=== PATIENT | female | born 1960 | race Caucasian/White ===

== ENCOUNTER 2018-07-21 07:51 | Outpatient (REF) | payer OTHER, SELFPAY ==
[2018-07-21 12:53] LABS: Anion Gap 8.5 mmol/L (3-11); BUN 21 mg/dL (7-18); CO2 30.5 mmol/L (21.0-32.0); CREATININE 0.92 mg/dL (0.55-1.02); Calcium 9.5 mg/dL (8.5-10.1); Chloride 102 mmol/L (98-107); Cholesterol 235 mg/dL (50-200); Glucose 99 mg/dL (70-100); HDL Cholesterol 55 mg/dL (40-60); LDL CHOLESTEROL 164 mg/dL (<100); Potassium 4.4 mmol/L (3.5-5.1); Sodium 141 mmol/L (136-145); Triglyceride 54 mg/dL (30-150)
== END 2018-07-21 08:11 ==
LOC: NCHCN 07:51
PROVIDERS: PCP Nurse Practitioner Family; Visit Provider Nurse Practitioner Family
DX: Z00.00 Encounter for general adult medical examination without abnormal findings (principal); Z13.228 Encounter for screening for other metabolic disorders; Z13.220 Encounter for screening for lipoid disorders
CPT/HCPCS: 80048; 80061; 83721

== ENCOUNTER 2018-07-28 10:42 | Outpatient (REF) | payer OTHER, SELFPAY ==
--- NOTE | 2018-07-28 10:15 | PAPFT_PTH ---
PATIENT: Annalee Morales LOC: [facility]#:[id number] AGE/SX: 57/F ROOM: RE07/28/[address]: Tania Hoff : 1960 BED: DIS: 07/28/2018 SPEC #: [id number] RECD: 07/28/18 12:58 STATUS: BRITTANIE REBibi #: [id number] JOSE: 07/28/18 10:[address]: Tania Hoff DEPT: [facility], [facility] Cytology RECD BY: Claudia Renner Tissues: 1 - CX/ENDOCX FOR PAP SMEARS Procedures: PAP THIN PREP/[facility] Screening HPV DNA PROBE Comments: [id number]
== END 2018-07-28 11:02 ==
LOC: NCHCN 10:42
PROVIDERS: PCP Nurse Practitioner Family; Visit Provider Nurse Practitioner Family
DX: Z00.00 Encounter for general adult medical examination without abnormal findings (principal); Z12.4 Encounter for screening for malignant neoplasm of cervix; Z11.51 Encounter for screening for human papillomavirus (HPV)
CPT/HCPCS: 88142; 87624

== ENCOUNTER 2019-12-19 07:52 | Outpatient (REF) | payer OTHER, SELFPAY ==
[2019-12-19 19:13] LABS: Anion Gap 5.5 mmol/L (3-11); BUN 16 mg/dL (7-18); CO2 31.5 mmol/L (21.0-32.0); CREATININE 0.85 mg/dL (0.55-1.02); Calcium 9.4 mg/dL (8.5-10.1); Calculated LDL 185 mg/dL (<100); Chloride 104 mmol/L (98-107); Cholesterol 254 mg/dL (<200); Glucose 92 mg/dL (74-106); HDL Cholesterol 53 mg/dL (40-60); Potassium 4.6 mmol/L (3.5-5.1); Sodium 141 mmol/L (136-145); Triglyceride 80 mg/dL (<150)
== END 2019-12-19 08:12 ==
LOC: NCHCN 07:52
PROVIDERS: PCP Nurse Practitioner Family; Visit Provider Nurse Practitioner Family
DX: Z00.00 Encounter for general adult medical examination without abnormal findings (principal); E78.5 Hyperlipidemia, unspecified
CPT/HCPCS: 80048; 80061

== ENCOUNTER 2020-01-03 00:46 | Outpatient (CLI) | payer OTHER, SELFPAY ==
--- NOTE | 2020-01-03 | DI.MAMMO_ITS ---
EXAM: MG MAMMO SCREENING CLINICAL HISTORY: SCREENING, Z12.39 TECHNIQUE: Mammograms were interpreted according to the usual protocol including computer analysis w [employer] CAD system, tomosynthesis and C-view imaging. COMPARISON: FINDINGS: The breasts are heterogeneously dense. No dominant mass or clumped microcalcification is identified in either breast. The current examination is compared with prior studies including July 2017 and ther e has been no gross interval change in appearance in comparison the previous examinations. IMPRESSION: No specific evidence of malignancy at this time. Routine screening examinations are suggested at yea rly intervals due to the family history of breast carcinoma. BI-RADS Category 1 - Negative Breast Density - Category C - Heterogeneously dense
== END 2020-01-03 01:06 ==
PROVIDERS: PCP Nurse Practitioner Family; Visit Provider Nurse Practitioner Family
DX: Z12.31 Encounter for screening mammogram for malignant neoplasm of breast (principal); Z80.3 Family history of malignant neoplasm of breast
CPT/HCPCS: 77063; 77067

== ENCOUNTER 2021-01-03 03:46 | Outpatient (CLI) | payer OTHER, SELFPAY ==
--- NOTE | 2021-01-03 14:51 | DI.MAMMO_ITS ---
Exam(s) MAMMO SCREENING EXAM: MAMMO SCREENING CLINICAL HISTORY: SCREENING, Z12.39 TECHNIQUE: Mammograms were interpreted according to the usual protocol including computer analysis w [employer] CAD system, tomosynthesis and C-view imaging. COMPARISON: FINDINGS: The breasts are heterogeneously dense. No dominant mass or clumped microcalcification is identified in either breast. The current examination is compared with previous examinations including December 28 and there has been no gross interval change in appearance in comparison with the prior studies. IMPRESSION: No specific evidence of malignancy at this time. Routine screening examinations are suggested at yea rly intervals due to the family history of breast carcinoma. BI-RADS Category 1 - Negative Breast Density - Category C - Heterogeneously dense
== END 2021-01-03 04:06 ==
PROVIDERS: PCP Nurse Practitioner Family; Visit Provider Nurse Practitioner Family
DX: Z12.31 Encounter for screening mammogram for malignant neoplasm of breast (principal); R92.8 Other abnormal and inconclusive findings on diagnostic imaging of breast
CPT/HCPCS: 77063; 77067

== ENCOUNTER 2021-12-09 21:51 | Outpatient (REF) | payer OTHER, SELFPAY ==
[2021-12-09 19:30] LABS: Calculated LDL 182 mg/dL (<100); Cholesterol 270 mg/dL (<200); HDL Cholesterol 51 mg/dL (40-60); Triglyceride 185 mg/dL (<150)
== END 2021-12-09 21:52 | disposition home or self-care (01) ==
LOC: NCHCN 21:51
PROVIDERS: PCP Nurse Practitioner Family; Visit Provider Nurse Practitioner Family
DX: E78.5 Hyperlipidemia, unspecified (principal)
CPT/HCPCS: 80061

== ENCOUNTER 2022-03-03 17:17 | Outpatient (REF) | payer OTHER, SELFPAY ==
[2022-03-03 19:23] LABS: TSH (W/Ref FT4) 1.63 uIU/mL (0.36-3.74)
== END 2022-03-03 17:18 | disposition home or self-care (01) ==
LOC: NCHCN 17:17
PROVIDERS: PCP Nurse Practitioner Family; Visit Provider Nurse Practitioner Family
DX: L65.9 Nonscarring hair loss, unspecified (principal)
CPT/HCPCS: 84443

== ENCOUNTER → 2023-02-04 00:49 | Outpatient (CLI) | payer OTHER, SELFPAY ==
--- NOTE | 2023-02-04 | DI.MAMMO_ITS ---
Exam(s) MAMMO SCREENING EXAM: MAMMO SCREENING CLINICAL HISTORY: SCREENING FOR BREAST CANCER Z12.39. TECHNIQUE: Bilateral full field digital CC and MLO mammographic images were obtained with 3D tomosyn thesis and utilizing computer aided detection (CAD). COMPARISON: Prior mammograms were reviewed. FINDINGS: There has been no significant change in the appearance and distribution of the fibroglandular tissue. Asymmetric density posteriorly in left breast is unchanged from prior mammograms. There are no new spiculated masses nor malignant appearing microcalcification groups. There is no significant architectural distortion nor skin thickening-retraction. IMPRESSION: No radiographic evidence of malignancy. Stable benign-appearing findings. BI-RADS Category 2 - Benign Findings Breast Density - Category C - Heterogeneously dense Breast density Category C or D implies that the patient has dense breast tissue. Dense breast tissue can make it harder to find cancer on a mammogram. Dense breast tissue is also associated with an incr eased risk of breast cancer. This information about the result of the mammogram report was provided to the patient to raise their awareness. Use this report when you speak with the patient about their risks for breast cancer, which includes their family history. At that time, you may recommend additional screening tests (Ultrasoun d or MRI) as these tests may add significant information. A negative radiographic report should not delay biopsy if a dominant or clinically suspicious mass is present. Up to ten percent of cancers are not identified on mammography. A negative report may reinforce clinical impression. Adenosis and dense breasts may obscure an underlying neoplasm. False positive reports average 6 to 10%. Patient will receive a letter notifying them of these results.
== END ==
PROVIDERS: PCP Nurse Practitioner Family; Visit Provider Nurse Practitioner Family
DX: Z12.31 Encounter for screening mammogram for malignant neoplasm of breast (principal); R92.333 Mammographic heterogeneous density, bilateral breasts
CPT/HCPCS: 77063; 77067

== ENCOUNTER 2024-03-06 08:44 | Outpatient (REF) | payer OTHER, SELFPAY ==
[2024-03-06 15:13] LABS: Anion Gap 6.4 mmol/L (3-11); BUN 19 mg/dL (7-18); CO2 30.6 mmol/L (21.0-32.0); Calcium 9.5 mg/dL (8.5-10.1); Calculated LDL 187 mg/dL (<100); Chloride 106 mmol/L (98-107); Cholesterol 259 mg/dL (<200); Estimated GFR 62.52 (mL/min/1.73m2); Glucose 98 mg/dL (74-106); HDL Cholesterol 58 mg/dL (40-60); Potassium 4.7 mmol/L (3.5-5.1); Sodium 143 mmol/L (136-145); Triglyceride 70 mg/dL (<150)
== END 2024-03-06 08:45 | disposition home or self-care (01) ==
LOC: NCHCN 08:44
PROVIDERS: PCP Nurse Practitioner Family; Visit Provider Nurse Practitioner Family
DX: Z00.00 Encounter for general adult medical examination without abnormal findings (principal)
CPT/HCPCS: 80048; 80061

== ENCOUNTER 2024-04-14 00:38 | Outpatient (CLI) | payer MEDICARE, SELFPAY ==
--- NOTE | 2024-04-14 | DI.DEXA_ITS ---
Exam(s) XR DEXA BONE DENSITY W/WO DOUGLAS EXAM: XR DEXA BONE DENSITY W/WO DOUGLAS CLINICAL HISTORY: Asymptomatic menopausal state, Z78.0; screening for osteoporosis TECHNIQUE: COMPARISON: No exams were available for comparison FINDINGS: Lateral Spine Image: Unremarkable. No compression deformities identified. Left hip: Total T-Score: -2.1 Total Z-Score: -0.8 T- and Z-scores: Findings in the total hip are consistent with osteopenia. There is osteoporosis in the femoral neck with a T-score of -2.9. Lumbar Spine: Total T-Score: -2.3 Total Z-Score: -0.5 T- and Z-scores: Overall there is osteopenia in the lumbar spine. There is osteoporosis in the L3 an d L4 vertebral bodies with T-scores of -2.8 and -3.1 respectively. IMPRESSION: Areas of osteoporosis seen in the left femoral neck and the left L3 and L4 vertebral bodies.
--- OUTSIDE RECORDS SUMMARY | 2024-04-14 00:42 | XMS_ITS | Clinical Summary ---
Author Organization [facility] Address [address] [place] [address] Care Team Providers Care Prototype Special Build Name Role Phone Elvia Hairston MD Primary Care Provide r Unavailable Social History Tobacco Use Types Packs/Day Years Used Date Smoking Tobacco: Never Assessed Comments Unknown Sex and Gender Information Value Date Recorded Sex Assigned at Not on file Legal Sex Female 18:12 EST Gender Identity Not on file Sexual Orientation Not on file Plan of Treatment Health Maintenance Due Date Last Done Comments Hepatitis C Screen 1960 Fall Risk Screening 09/18/2023 COVID-19 Vaccine ( season) 2023 RSV Immunization ( o r 60+ Years) (1 - 1-dose 75+ series) 2033 Care Teams Prototype Special Build Relationship Specialty Start Date End Date Elvia Hairston MD PCP - General 02/05/15
--- OUTSIDE RECORDS SUMMARY | 2024-04-14 00:42 | XMS_ITS | Encounter Summary ---
Author Organization [facility] Address [address] [place] [address] Care Team Providers Care Clinic Specialist Name Role Phone Elvia Hairston MD Primary Care Provide r Unavailable Encounter Details Date Type Department Care Team (Late st Contact Info) Description 07/28/2018 Results Only [facility] [phone] Angela Hoff, JOY [address] [place] [address] Social History Tobacco Use Types Packs/Day Years Used Date Smoking Tobacco: Never Assessed Comments Unknown Sex and Gender Information Value Date Recorded Sex Assigned at Not on file Legal Sex Female 18:12 EST Gender Identity Not on file Sexual Orientation Not on file documented as of this encounter Plan of Treatment Not on file documented as of this encounter Procedures Procedure Name Priority Date/Time Associated Diagnosis Comments PAP TEST- RESULT ONLY Routine 07/28/2018 0:00 EDT documented in this encounter Results * PAP TEST- RESULT ONLY (07/28/2018 0:00 EDT) Pathology Report: CYTOPATHOLOGY REPORT Reports generated via electronic interface contain original data; however they are lacking the format of the original report. Caution should be taken when reading/interpreti ng unformatted reports. Name: ? ANNALEE MORALES ? Accession #: ? [id number] ? : ? 1960 (Age: 57) ??F ?Collect Date: ? 07/28/2018 ? Location: ? [facility] ? Receive Date: ? 07/29/2018 ? Provider: ANGELA HOFF INTERMEDIATE TEACHER Copy to: ? Final Report SPECIMEN ADEQUACY ? Satisfactory for Evaluation - transformation zone component present - scant squamous epithelial component GENERAL CATEGORIZATION ? Negative for Intraepithelial Lesion or Malignancy ?? Other: Additional clinical information: Z00.00 Z12.4 Z11.51 Specimen/Source: ??Pap Test, Cervix, ThinPrep Imaging System with manual evaluation Document reviewed and electronically signed by: ? Aki Blue, CT(ASCP) ? Report ??Date: 08/01/2018 10:02 HPV with Pap Test ? Date Ordered: ? 08/01/2018 ? Status: ?? Signed Out ?Date Complete: ? 08/02/2018 ? By: ??System Interface ? Date Reported: ? 08/02/2018 ? Interpretation RESULT: Negative for HPV. No E6 or E7 mRNA is detected from HPV types 16,18,31,33,35, 39,45,51,52,56,58, 59,66, and 68 by management assistant mediated amplification. Comments Document reviewed and electronically signed by: ? System Interface ? Report date: 08/02/2018 By the signature above, the attending physician certifies that he/she has personally conducted a gross and/or microscopic examination of the described specimens and rendered or confirmed the above diagnosis. End of Report [facility] 07/28/2018 07/29/2018 us Angela Hoff INTERMEDIATE TEACHER PATHOLOGY ORDERABLES Final Res ult [facility] [address] [place] [address] documented in this encounter Visit Diagnoses Not on filedocumented in this encounter Care Teams Clinic Specialist Relationship Specialty Start Date End Date Elvia Hairston MD PCP - General 02/05/15 documented as of this encounter
--- OUTSIDE RECORDS SUMMARY | 2024-04-14 00:42 | XMS_ITS | Encounter Summary ---
Author Organization [facility] Address [address] [place] [address] Care Team Providers Care Hub Lead Name Role Phone Unavailable Primary Care Provider Unavailabl e Encounter Details Date Type Department Care Team (Late st Contact Info) Description 01/19/2002 Results Only [facility] [place] conversion [address] [place] [address] Patria Cohen, APOLINAR Social History Tobacco Use Types Packs/Day Years [...] Procedure Name Priority Date/Time Associated Diagnosis Comments CYTOPATHOLOGY Routine 01/19/2002 0:00 EDT documented in this encounter Results * CYTOPATHOLOGY (01/19/2002 0:00 EDT) Pathology Report: CYTOPATHOLOGY REPORT Reports generated via electronic interface contain original data; however they are lacking the format of the original report. Caution should be taken when reading/interpreti ng unformatted reports. Name: ? ANNALEE MORALES ? Accession #: ? [id number] : ? 1960 (Age: 41) ??F ?Collect Date: ? 01/19/2002 Location: ? [facility] ? Receive Date: ? 01/23/2002 Provider: ?PATRIA COHEN HUSBANDRY PERSON Copy to: ? Specimen/Source: ?ThinPrep Pap Test, Cervix/Endocervix Last Menstrual Period: ? 01/14/02 ? SPECIMEN ADEQUACY ? Satisfactory for Evaluation - transformation zone component present GENERAL CATEGORIZATION ? Negative for Intraepithelial Lesion or Malignancy ? Document reviewed and electronically signed by: ? ORLANDO Palumbo(ASCP) ? Report Date: ??01/26/2002 07:50 End of Report [facility] 01/19/2002 01/23/2002 us Patria Cohen NP PATHOLOGY ORDERABLES Final Re sult [facility] [address] [place] [address] documented in this encounter Visit Diagnoses Not on filedocumented in this encounter
--- OUTSIDE RECORDS SUMMARY | 2024-04-14 00:42 | XMS_ITS | Encounter Summary ---
Author Organization [facility] Address [address] [place] [address] Care Team Providers Care Business Continuity Director Name Role Phone Unavailable Primary Care Provider Unavailabl e Encounter Details Date Type Department Care Team (Late st Contact Info) Description 01/25/2008 Before [facility] Converted Visit ([facility]) [facility] conversion [address] [place] [address] Patria Cohen, MACHINE STAKER Social History Tobacco Use Types Packs/Day Years [...] Priority Date/Time Associated Diagnosis Comments CYTOPATHOLOGY Routine 01/25/2008 0:00 EDT documented in this encounter Results * CYTOPATHOLOGY (01/25/2008 0:00 EDT) Pathology Report: CYTOPATHOLOGY REPORT ? Reports generated via electronic interface contain original data; ? however they are lacking the format of the original report. ? Caution should be taken when reading/interpreti ng unformatted reports. ? Name: ? RIGOBERTO, ANNALEE De Jesus ? Accession #: ? [id number] ? : ? 1960 (Age: 47) ??F ?Collect Date: ? 01/25/2008 ? Location: ? [facility] ? Receive Date: ? 01/26/2008 ? Provider: ?PATRIA M KATI MACHINE STAKER ? Copy to: ? Specimen/Source: ?Pap Test, Cervix/Endocervix, ThinPrep Imaging System ? with manual evaluation ? Last Menstrual Period: ? 10/24/08 ? SPECIMEN ADEQUACY ? Satisfactory for Evaluation ? - transformation zone component present ? GENERAL CATEGORIZATION ? Negative for Intraepithelial Lesion or Malignancy ? Document reviewed and electronically signed by: ? Carmella Aidee, CT(ASCP) ? Report Date: ??01/30/2008 12:44 ? End of Report ? [facility] 01/25/2008 01/26/2008 us Patria Cohen MACHINE STAKER PATHOLOGY ORDERABLES Final Re sult [facility] [address] [place] [address] documented in this encounter Visit Diagnoses Not on filedocumented in this encounter
--- OUTSIDE RECORDS SUMMARY | 2024-04-14 00:42 | XMS_ITS | Encounter Summary ---
Author Organization [facility] Address [address] [place] [address] Care Team Providers Care Tractor Trailer Mechanic Name Role Phone Unavailable Primary Care Provider Unavailabl e Encounter Details Date Type Department Care Team (Late st Contact Info) Description 11/24/2010 Results Only [facility] Laboratory Services - [facility] ([facility] [address] [place] [address] Patria Cohen, APOLINAR Social History Tobacco Use [...] Diagnosis Comments PAP TEST- RESULT ONLY Routine 11/24/2010 0:00 EDT documented in this encounter Results * PAP TEST- RESULT ONLY (11/24/2010 0:00 EDT) Pathology Report: CYTOPATHOLOGY REPORT ? Reports generated via electronic interface contain original data; ? however they are lacking the format of the original report. ? Caution should be taken when reading/interpreti ng unformatted reports. ? Name: ? RIGOBERTO, ANNALEE De Jesus ? Accession #: ? [id number] ? : ? 1960 (Age: 50) ??F ?Collect Date: ? 11/24/2010 ? Location: ? [facility] ? Receive Date: ? 11/25/2010 ? Provider: PATRIA Garcia KATI BODY AND FRAME TECHNICIAN ? Copy to: ? Final Report ? SPECIMEN ADEQUACY ? Satisfactory for Evaluation ? - transformation zone component present ? GENERAL CATEGORIZATION ? Negative for Intraepithelial Lesion or Malignancy ? Last Menstural Period: 10/13/2010 ? Specimen/Source: ??Pap Test, Cervix/Endocervix, ThinPrep Imaging System with ? manual evaluation ? Document reviewed and electronically signed by: ? Aki Blue, CT(ASCP) ? Report ??Date: 11/28/2010 13:44 ? HPV with Pap Test ? Date Ordered: ? 11/28/2010 ? Status: ?? Signed Out ?Date Complete: ? 12/04/2010 ? By: ??System Interface ? Date Reported: ? 12/04/2010 ? Interpretation ? RESULT: Negative for HPV types 16, 18, 31, 33, 35, 39, 45, 51, 52, ? 56, 58, 59, and 68. ? Comments ? Document reviewed and electronically signed by: ? System Interface ? Report date: 12/04/2010 ? By the signature above, the attending physician certifies that he/she has ? personally conducted a gross and/or microscopic examination of the described ? specimens and rendered or confirmed the above diagnosis. ? End of Report ? [facility] 11/24/2010 11/25/2010 us Patria Cohen BODY AND FRAME TECHNICIAN PATHOLOGY ORDERABLES Final Re sult [facility] [address] [place] [address] documented in this encounter Visit Diagnoses Not on filedocumented in this encounter
--- OUTSIDE RECORDS SUMMARY | 2024-04-14 00:42 | XMS_ITS | Encounter Summary ---
Author Organization [facility] Address [address] [place] [address] Care Team Providers Care Drum Maker Name Role Phone Unavailable Primary Care Provider Unavailabl e Encounter Details Date Type Department Care Team (Late st Contact Info) Description 01/28/2009 Orders Only [facility] Services - [facility] [place] [address] [place] [address] Patria Cohen, SURFACE ROOM SHOP OPTICIAN Social History Tobacco Use Types Packs/Day Years [...] Priority Date/Time Associated Diagnosis Comments CYTOPATHOLOGY Routine 01/28/2009 0:00 EST documented in this encounter Results * CYTOPATHOLOGY (01/28/2009 0:00 EST) Pathology Report: CYTOPATHOLOGY REPORT ? Reports generated via electronic interface contain original data; ? however they are lacking the format of the original report. ? Caution should be taken when reading/interpreti ng unformatted reports. ? Name: ? RIGOBERTO, ANNALEE De Jesus ? Accession #: ? [id number] ? : ? 1960 (Age: 48) ??F ?Collect Date: ? 01/28/2009 ? Location: ? [facility] ? Receive Date: ? 01/29/2009 ? Provider: ?PATRIA M KTAI SURFACE ROOM SHOP OPTICIAN ? Copy to: ? Specimen/Source: ?Pap Test, Cervix/Endocervix, ThinPrep Imaging System ? with manual evaluation ? Last Menstrual Period: ? 10/21/09 ? Other: ? HPVA - HPV testing requested if ASC-US on the current ThinPrep Pap test. ? SPECIMEN ADEQUACY ? Satisfactory for Evaluation ? - transformation zone component present ? GENERAL CATEGORIZATION ? Negative for Intraepithelial Lesion or Malignancy ? Document reviewed and electronically signed by: ? Danni Terrazas, CT(ASCP)(IAC) ? Report Date: ??02/04/2009 14:23 ? End of Report ? [facility] 01/28/2009 01/29/2009 us Patria Cohen SURFACE ROOM SHOP OPTICIAN PATHOLOGY ORDERABLES Final Re sult [facility] [address] [place] [address] documented in this encounter Visit Diagnoses Not on filedocumented in this encounter
--- OUTSIDE RECORDS SUMMARY | 2024-04-14 00:42 | XMS_ITS | Encounter Summary ---
Author Organization [facility] Address [address] [place] [address] Care Team Providers Care Plant Control Operator Name Role Phone Unavailable Primary Care Provider Unavailabl e Encounter Details Date Type Department Care Team (Late st Contact Info) Description 01/05/2000 Results Only [facility] - [facility] conversion [address] [place] [address] Patria Cohen, APOLINAR Social History Tobacco Use [...] Priority Date/Time Associated Diagnosis Comments CYTOPATHOLOGY Routine 01/05/2000 0:00 EDT documented in this encounter Results * CYTOPATHOLOGY (01/05/2000 0:00 EDT) Pathology Report: CYTOPATHOLOGY REPORT Reports generated via electronic interface contain original data; however they are lacking the format of the original report. Caution should be taken when reading/interpreti ng unformatted reports. Name: ? ANNALEE MORALES ? Accession #: ? [id number] : ? 1960 (Age: 39) ??F ?Collect Date: ? 01/05/2000 Location: ? [facility] ? Receive Date: ? 01/07/2000 Provider: ?PATRIA COHEN STOCK PULLER Copy to: ? Specimen/Source: ?ThinPrep Pap Test, Cervix/Endocervix Last Menstrual Period: ? 12/24/99 ? SPECIMEN ADEQUACY ? Satisfactory for evaluation. GENERAL CATEGORIZATION ? Within Normal Limits ? Document reviewed and electronically signed by: ? Fiorella Rice, CT(ASCP) ? Report Date: ??01/13/2000 13:54 End of Report [facility] 01/05/2000 01/07/2000 us Patria Cohen NP PATHOLOGY ORDERABLES Final Re sult [facility] [address] [place] [address] documented in this encounter Visit Diagnoses Not on filedocumented in this encounter
--- OUTSIDE RECORDS SUMMARY | 2024-04-14 00:42 | XMS_ITS | Encounter Summary ---
Author Organization [facility] Address [address] [place] [address] Care Team Providers Care Field Instructor Name Role Phone Unavailable Primary Care Provider Unavailabl e Encounter Details Date Type Department Care Team (Late st Contact Info) Description 12/29/2006 Results Only [facility] conversion [address] [place] [address] Patria Cohen, APOLINAR Social History Tobacco Use [...] Priority Date/Time Associated Diagnosis Comments CYTOPATHOLOGY Routine 12/29/2006 0:00 EDT documented in this encounter Results * CYTOPATHOLOGY (12/29/2006 0:00 EDT) Pathology Report: CYTOPATHOLOGY REPORT Reports generated via electronic interface contain original data; however they are lacking the format of the original report. Caution should be taken when reading/interpreti ng unformatted reports. Name: ? ANNALEE MORALES ? Accession #: ? [id number] : ? 1960 (Age: 46) ??F ?Collect Date: ? 12/29/2006 Location: ? [facility] ? Receive Date: ? 12/29/2006 Provider: ?PATRIA COHEN DIMMER BOARD OPERATOR Copy to: ? Specimen/Source: ?ThinPrep Pap Test, Cervix/Endocervix, processed on cisimple ThinPrep Imaging System, with manual evaluation Last Menstrual Period: ? 12/07/06 Other: ? HPVA - HPV testing requested if ASC-US on the current ThinPrep Pap test. ? SPECIMEN ADEQUACY ? Satisfactory for Evaluation - transformation zone component present GENERAL CATEGORIZATION ? Negative for Intraepithelial Lesion or Malignancy ? Document reviewed and electronically signed by: ? ORLANDO Horan(ASCP) ? Report Date: ??01/05/2007 11:28 End of Report [facility] 12/29/2006 12/29/2006 us Patria Cohen NP PATHOLOGY ORDERABLES Final Re sult [facility] [address] [place] [address] documented in this encounter Visit Diagnoses Not on filedocumented in this encounter
--- OUTSIDE RECORDS SUMMARY | 2024-04-14 00:42 | XMS_ITS | Encounter Summary ---
Author Organization [facility] Address [address] [place] [address] Care Team Providers Care Donor Support Technician Name Role Phone Unavailable Primary Care Provider Unavailabl e Encounter Details Date Type Department Care Team (Late st Contact Info) Description 12/10/2005 Results Only [facility] conversion [address] [place] [address] Matthew Wright MD [address] [place] [address] Social History Tobacco Use Types Packs/Day Years [...] Priority Date/Time Associated Diagnosis Comments CYTOPATHOLOGY Routine 12/10/2005 0:00 EDT documented in this encounter Results * CYTOPATHOLOGY (12/10/2005 0:00 EDT) Pathology Report: CYTOPATHOLOGY REPORT Reports generated via electronic interface contain original data; however they are lacking the format of the original report. Caution should be taken when reading/interpreti ng unformatted reports. Name: ? ANNALEE MORALES ? Accession #: ? [id number] : ? 1960 (Age: 45) ??F ?Collect Date: ? 12/10/2005 Location: ? [facility] ? Receive Date: ? 12/10/2005 Provider: ? ADAM WRIGHT MD Copy to: ?OWEN Jose PARIKH FAST FOOD SUPERVISOR ? CYTOLOGIC DIAGNOSIS: ? Breast, right, palpation guided fine needle aspiration: - Consistent with fibrocystic change. ??See comment. ? COMMENT: ? The single ThinPrep slide is of low cellularity and demonstrates scattered flat cohesive sheets of bland appearing ductal epithelial cells. ??The findings are consistent with fibrocystic change. ??However, correlation with clinical and radiologic impression is essential. ??(Dr. Matos)/[facility] Document reviewed and electronically signed by: ? Sosa Matos MD Report Date: ??12/14/2005 17:17 By the signature above, the attending physician certifies that he/she has personally conducted a gross and/or microscopic examination of the described specimens and rendered or confirmed the above diagnosis. Specimen Type: ? Breast, Fine Needle Aspiration, Right Clinical History: ? Right breast nodule ? Gross Description: ? 1 tube of Cytolyt was received and processed by selective cellular enhancement technique. ? End of Report [facility] 12/10/2005 12/10/2005 15: 09 EDT us Matthew Wright MD PATHOLOGY ORDERABLES Final Res ult [facility] [address] [place] [address] documented in this encounter Visit Diagnoses Not on filedocumented in this encounter
--- OUTSIDE RECORDS SUMMARY | 2024-04-14 00:42 | XMS_ITS | Encounter Summary ---
Author Organization [facility] Address [address] [place] [address] Care Team Providers Care Shelver Name Role Phone Unavailable Primary Care Provider Unavailabl e Encounter Details Date Type Department Care Team (Late st Contact Info) Description 08/09/2003 Results Only [facility] - Map conversion [address] [place] [address] Patria Cohen, APOLINAR Social History Tobacco Use [...] Priority Date/Time Associated Diagnosis Comments CYTOPATHOLOGY Routine 08/09/2003 0:00 EDT documented in this encounter Results * CYTOPATHOLOGY (08/09/2003 0:00 EDT) Pathology Report: CYTOPATHOLOGY REPORT Reports generated via electronic interface contain original data; however they are lacking the format of the original report. Caution should be taken when reading/interpreti ng unformatted reports. Name: ? ANNALEE MORALES ? Accession #: ? [id number] : ? 1960 (Age: 42) ??F ?Collect Date: ? 08/09/2003 Location: ? [facility] ? Receive Date: ? 08/10/2003 Provider: ?PATRIA COHEN DIETARY SERVICE AIDE Copy to: ? Specimen/Source: ?ThinPrep Pap Test, Cervix/Endocervix Last Menstrual Period: ? 07/24/03 ? SPECIMEN ADEQUACY ? Satisfactory for Evaluation - transformation zone component present GENERAL CATEGORIZATION ? Negative for Intraepithelial Lesion or Malignancy ? Document reviewed and electronically signed by: ? Nikky Silverman, SCT(ASCP) ? Report Date: ??08/15/2003 13:52 End of Report [facility] 08/09/2003 08/10/2003 us Patria Cohen NP PATHOLOGY ORDERABLES Final Re sult [facility] [address] [place] [address] documented in this encounter Visit Diagnoses Not on filedocumented in this encounter
--- OUTSIDE RECORDS SUMMARY | 2024-04-14 00:42 | XMS_ITS | Encounter Summary ---
Author Organization [facility] Address [address] [place] [id number] Care Team Providers Care Director Of Retail Merchandising Name Role Phone Unavailable Primary Care Provider Unavailabl e Encounter Details Date Type Department Care Team (Late st Contact Info) Description 01/03/2014 Results Only [facility] ([facility]) [address] [place] [id number] Patria Cohen, APOLINAR Social History Tobacco Use [...] Diagnosis Comments PAP TEST- RESULT ONLY Routine 01/03/2014 0:00 EDT documented in this encounter Results * PAP TEST- RESULT ONLY (01/03/2014 0:00 EDT) Pathology Report: CYTOPATHOLOGY REPORT Reports generated via electronic interface contain original data; however they are lacking the format of the original report. Caution should be taken when reading/interpreti ng unformatted reports. Name: ? ANNALEE MORALES ? Accession #: ? [id number] ? : ? 1960 (Age: 53) ??F ?Collect Date: ? 01/03/2014 ? Location: ? [facility] ? Receive Date: ? 01/04/2014 ? Provider: PATRIA COHEN NP Copy to: ? Final Report SPECIMEN ADEQUACY ? Satisfactory for Evaluation - transformation zone component present GENERAL CATEGORIZATION ? Negative for Intraepithelial Lesion or Malignancy ?? Last Menstrual Period: 04/16/13 Specimen/Source: ??Pap Test, Cervix/Endocervix, ThinPrep Imaging System with manual evaluation Document reviewed and electronically signed by: ? ORLANDO Brower(ASCP) ? Report ??Date: 01/10/2014 11:08 HPV with Pap Test ? Date Ordered: ? 01/10/2014 ? Status: ?? Signed Out ?Date Complete: ? 01/12/2014 ? By: ??System Interface ? Date Reported: ? 01/12/2014 ? Interpretation RESULT: Negative for HPV. No E6 or E7 mRNA is detected from HPV types 16,18,31,33,35, 39,45,51,52,56,58, 59,66, and 68 by clinical services consultant mediated amplification. Comments Document reviewed and electronically signed by: ? System Interface ? Report date: 01/12/2014 By the signature above, the attending physician certifies that he/she has personally conducted a gross and/or microscopic examination of the described specimens and rendered or confirmed the above diagnosis. End of Report [facility] 01/03/2014 01/04/2014 us Patria Cohen NP PATHOLOGY ORDERABLES Final Re sult [facility] [address] [place] [address] documented in this encounter Visit Diagnoses Not on filedocumented in this encounter
--- OUTSIDE RECORDS SUMMARY | 2024-04-14 00:42 | XMS_ITS | Encounter Summary ---
Author Organization [facility] Address [address] [place] [address] Care Team Providers Care Cupola Tapper Helper Name Role Phone Unavailable Primary Care Provider Unavailabl e Encounter Details Date Type Department Care Team (Late st Contact Info) Description 11/23/2005 Results Only [facility] [place] [facility] [address] [place] [address] Patria Cohen, APOLINAR Social History Tobacco Use [...] Priority Date/Time Associated Diagnosis Comments CYTOPATHOLOGY Routine 11/23/2005 0:00 EDT documented in this encounter Results * CYTOPATHOLOGY (11/23/2005 0:00 EDT) Pathology Report: CYTOPATHOLOGY REPORT Reports generated via electronic interface contain original data; however they are lacking the format of the original report. Caution should be taken when reading/interpreti ng unformatted reports. Name: ? ANNALEE MORALES ? Accession #: ? [id number] : ? 1960 (Age: 45) ??F ?Collect Date: ? 11/23/2005 Location: ? [facility] ? Receive Date: ? 11/24/2005 Provider: ?PATRIA COHEN LUMBER CARRIER OPERATOR Copy to: ? Specimen/Source: ?ThinPrep Pap Test, Cervix/Endocervix, processed on [employer] ThinPrep Imaging System, with manual evaluation Last Menstrual Period: ? 11/11/05 Other: ? HPVA - HPV testing requested if ASC-US on the current ThinPrep Pap test. ? SPECIMEN ADEQUACY ? Satisfactory for Evaluation - transformation zone component present GENERAL CATEGORIZATION ? Negative for Intraepithelial Lesion or Malignancy ? Document reviewed and electronically signed by: ? JESSA Prasad(ASCP) ? Report Date: ??11/25/2005 11:19 End of Report [facility] 11/23/2005 11/24/2005 us Patria Cohen NP PATHOLOGY ORDERABLES Final Re sult [facility] [address] [place] [address] documented in this encounter Visit Diagnoses Not on filedocumented in this encounter
--- OUTSIDE RECORDS SUMMARY | 2024-04-14 00:42 | XMS_ITS | Encounter Summary ---
Author Organization [facility] Address [address] [place] [address] Care Team Providers Care Claims Counsel Name Role Phone Unavailable Primary Care Provider Unavailabl e Encounter Details Date Type Department Care Team (Late st Contact Info) Description 01/12/2006 Results Only [facility] conversion [address] [place] [address] Matthew Wright MD [address] [place] [address] Social History Tobacco Use Types Packs/Day Years [...] Procedure Name Priority Date/Time Associated Diagnosis Comments SURGICAL PATHOLOGY Routine 01/12/2006 0:00 EDT documented in this encounter Results * SURGICAL PATHOLOGY (01/12/2006 0:00 EDT) Pathology Report: SURGICAL PATHOLOGY REPORT Reports generated via electronic interface contain original data; however they are lacking the format of the original report. Caution should be taken when reading/interpreti ng unformatted reports. Name: ? ANNALEE MORALES ? Accession #: ? [id number] ? : ? 1960 (Age: 45) ??F ? Collect Date: ? 01/12/2006 ? Location: ? [facility] ? Receive Date: ? 01/12/2006 ? Provider: ADAM WRIGHT MD Copy to: ? Final Pathologic Diagnosis: ? Breast, right, upper, outer quadrant, excisional biopsy: 1. ?Smaller fragment breast tissue with fibrocystic changes including: ? - Apocrine metaplasis. - Microcyst formation. - Nodular dense interlobular fibrosis. ? 2. ?? Larger fragment breast tissue with: ? - Fibroadenoma, 8 mm in maximum dimension. ? - Moderate epithelial hyperplasia, focal. ? - Microcyst formation, focal. ? - Nodular dense interlobular fibrosis. Document reviewed and electronically signed by: LORI KWON MD Report ??Date: 01/17/2006 14:05 By the signature above, the attending physician certifies that he/she has personally conducted a gross and/or microscopic examination of the described specimens and rendered or confirmed the above diagnosis. Specimen(s) Received: ? Right breast nodule Clinical History: ? 8 x 5 mm nodule R breast UOQ. ??Fibrocystic change. Gross Description: ? Received in formalin labelled [place] and right breast nodule are two unoriented, madden-yellow to white, fibrofatty tissues which have a combined weight of 4.48 grams and measure 1.5 x 1.2 x 0.7 cm and 2.5 x 2.3 x 0.8 cm. ??Prior to sectioning, the smaller tissue is inked blue and the larger inked black. ??The cut surfaces of the smaller nodule are madden-white, firm and fibrous with a minute, 0.3 cm in greatest dimension cystic structure. ??There is a minimal amount of admixed yellow lobulated adipose tissue. ??The cut surfaces of the larger nodule are dense madden-white fibrous tissues admixed with a scant amount of yellow lobulated adipose tissue. ??There is a central focal area of hemorrhage. The smaller nodule is trisected and submitted as (A1). ??The larger nodule is serially sectioned and entirely submitted as (A2) to (A5) with the central sections as (A2) to (A4) and the distal ends reverse en face as (A5). ??(Marva Estrada)/lgk End of Report [facility] 01/12/2006 01/12/2006 10: 21 EDT us Matthew Wright MD PATHOLOGY ORDERABLES Final Res ult [facility] [address] [place] [address] documented in this encounter Visit Diagnoses Not on filedocumented in this encounter
--- OUTSIDE RECORDS SUMMARY | 2024-04-14 00:42 | XMS_ITS | Referral Summary ---
Author Organization [facility] Address [address] [place] [id number] Care Team Providers Care Press Machine Feeder Name Role Phone Elvia Hairston MD Primary Care Provide r Unavailable Social History Tobacco Use Types Packs/Day Years Used Date Smoking Tobacco: Never Assessed Comments Unknown Sex and Gender Information Value Date Recorded Sex Assigned at Not on file Legal Sex Female 18:12 EST Gender Identity Not on file Sexual Orientation Not on file Plan of Treatment Not on file Care Teams Press Machine Feeder Relationship Specialty Start Date End Date Elvia Hairston MD PCP - General 02/05/15
== END 2024-04-14 00:58 ==
LOC: DI 00:38
PROVIDERS: PCP Nurse Practitioner Family; Visit Provider Nurse Practitioner Family
DX: Z78.0 Asymptomatic menopausal state (principal); Z13.820 Encounter for screening for osteoporosis; M81.0 Age-related osteoporosis without current pathological fracture
CPT/HCPCS: 77080

== ENCOUNTER 2024-09-01 00:39 | Outpatient (CLI) | payer MEDICARE, SELFPAY ==
--- NOTE | 2024-09-01 12:16 | DI.MAMMO_ITS ---
Exam(s) MAMMO SCREENING EXAM: MAMMO SCREENING CLINICAL HISTORY: Screening, Z12.31. TECHNIQUE: Bilateral full field digital CC and MLO mammographic images were obtained with 3D tomosyn thesis and utilizing computer aided detection (CAD). COMPARISON: Prior mammograms were reviewed. FINDINGS: There has been no significant change in the appearance and distribution of the fibroglandular tissue. Asymmetric density seen posteriorly in the left breast on the CC view is unchanged from prior mammogr ams. There are no new spiculated masses nor new malignant appearing microcalcification groups. There is no significant architectural distortion nor skin thickening-retraction. IMPRESSION: No radiographic evidence of malignancy. BI-RADS Category 2 - Benign Findings Breast Density - Category C - The breast are heterogeneously dense, which may obscure small masses. Breast density Category C or D implies that the patient has dense breast tissue. Dense breast tissue can make it harder to find cancer on a mammogram. Dense breast tissue is also associated with an incr eased risk of breast cancer. This information about the result of the mammogram report was provided to the patient to raise their awareness. Use this report when you speak with the patient about their risks for breast cancer, which includes their family history. At that time, you may recommend additional screening tests (Ultrasoun d or MRI) as these tests may add significant information. A negative radiographic report should not delay biopsy if a dominant or clinically suspicious mass is present. Up to ten percent of cancers are not identified on mammography. A negative report may reinforce clinical impression. Adenosis and dense breasts may obscure an underlying neoplasm. False positive reports average 6 to 10%. Patient will receive a letter notifying them of these results.
== END 2024-09-01 00:59 ==
LOC: DI 00:39
PROVIDERS: PCP Nurse Practitioner Family; Visit Provider Nurse Practitioner Family
DX: Z12.31 Encounter for screening mammogram for malignant neoplasm of breast (principal); R92.333 Mammographic heterogeneous density, bilateral breasts; D24.2 Benign neoplasm of left breast
CPT/HCPCS: 77063; 77067